=== PATIENT | male | born 1985 | race Caucasian/White ===

== ENCOUNTER → 2017-06-01 | Outpatient (CLI) | payer OTHER, BC ==
[2015-04-12 03:00] VITALS: BP 136/72
[~2017-06-01] MED LIST: DEXT30CA6 PO
--- NOTE | 2017-06-01 15:55 | RAD ---
Exam performed: Lumbosacral spine series. Indication:Back pain for 2 months radiating into the right leg. Leg feels heavy, and should of injury. Date of Service:06/01/17 none available. Comparison:None available Lumbosacral spine findings: AP and lateral radiographs of the lumbosacral spine as well as a coned-down lateral view of the lumbosacral junction reveal the vertebral bodies to be well aligned. There is narrowing of L5-S1 disc space . The Vertebral body heights are well maintained. The pedicles are intact. As visualized, the sacroiliac joints appear unremarkable. Impression: Mild disc degenerative changes involving L5-S1, otherwise unremarkable exam
== END | disposition home or self-care (01) ==
LOC: DXRADRC 15:37
PROVIDERS: ATTEND Nurse Practitioner Family
DX: M47.897 Other spondylosis, lumbosacral region (principal)
CPT/HCPCS: 72100